=== PATIENT | male | born 1985 | race Caucasian/White ===

== ENCOUNTER 2024-12-28 05:48 | Day surgery (SDC) | payer BC, SELFPAY ==
[2024-12-28] VITALS (8 sets, daily range): BP systolic 109–132; BP diastolic 63–86; BMI 23.3
[2024-12-28] MEDS: TYLENOL 1000 MG PO (06:17)
[2024-12-28] MEDS: NORMOSOL-R/PLASMALYTE-A 1000 IV (06:22)
--- NOTE | 2024-12-28 07:10 | W.SUR.PREOP ---
Pre-Operative Surgical Note
-
I have examined this patient prior to the performance of the scheduled procedure.
The patient's condition is unchanged from the time of the current History and
Physical and the patient is able to undergo the scheduled procedure.
--- NOTE | 2024-12-28 07:10 | HP.FOC2 ---
Focused History & Physical
Chief Complaint
HPI:
Chief Complaint: Left inguinal hernia
HPI / Indication for Planned Procedure: This is a 39-year-old male presents with a symptomatic left inguinal hernia. Will plan for a laparoscopic inguinal hernia repair with mesh.
Relevant Past Medical History: Negative
Relevant Social History: Negative
Relevant Family History: Negative
Relevant Past Surgical History: Negative
Review of Systems
Review of Pertinent Systems: All Systems Negative
Medication
See Medication form for detailed medications: Yes
Medication List (including Herbals & OTC):
No Meds [No Current Medications] 12/27/24
Medications Reviewed: Yes
Allergies and Reactions
Patient has Allergies: No
Noted Allergies and Reactions:
Allergy/AdvReac Type Severity Reaction Status Date / Time
No Known Allergies Allergy Verified 12/28/24 06:13
Pertinent Physical Exam
All Other Systems: Negative
Head/Neck: Normal
Diagnosis / Assessment
This is a 39-year-old male presents with a symptomatic left inguinal hernia. Will plan for a laparoscopic inguinal hernia repair with mesh.
Plan / Procedure
This is a 39-year-old male presents with a symptomatic left inguinal hernia. Will plan for a laparoscopic inguinal hernia repair with mesh.
Anesthesia/Sedation to be done by Anesthesia Provider: Yes
--- NOTE | 2024-12-28 08:29 | W.IMMPOSTOP ---
Surgical Immed Post Op Note
-
Primary Surgeon: Anand Cruz MD
Assisting Surgeon: None
Pre-op Diagnosis: Left inguinal hernia
Post-op Diagnosis: Same
Procedure Performed: Laparoscopic left inguinal hernia repair with mesh (TEP approach)
Anesthesia Type: General
Specimen / Cultures: None
Estimated Blood Loss: 3 cc
Complications: None
Operative Findings: Small direct inguinal hernia. There was no indirect or femoral components. There was no cord lipoma. The attenuated transversalis fascia in the direct space was tacked to Owen's ligament. After achieving the critical view
of the MPO a large left Bard 3D max mid weight uncoated polypropylene mesh was tacked at coopers ligament. Care was taken during desufflation to ensure that the inferior edge of the mesh did not roll or fold.
--- NOTE | 2024-12-28 08:31 | OR.RPT ---
Operative Report
Operative Report
Patient Name: Kong Edwards
: 01/03/1995
Date of Operation: 12/28/2024
Preoperative Diagnosis: Reducible Inguinal hernia, left
Postoperative Diagnosis: Same
Procedure(s):
1. Laparoscopic Inguinal Hernia Repair, (TEP approach)
Surgeon(s):
Dr. Cruz
Mash Filter Operator(s):
ELIS Ramirez
Anesthesia: General
Estimated Blood Loss: 3 cc
Urine Output: None
Drains/Lines/Implants: Large 3D Max Bard mid weight mesh
Specimens: None
Indication for surgery: The patient has a history of groin pain and noted on exam to have a Left inguinal Hernia(s). Following review of therapeutic options they elected to undergo a minimally invasive repair.
Operative Findings: Small direct inguinal hernia. There was no indirect or femoral components. There was no cord lipoma. The attenuated transversalis fascia in the direct space was tacked to Woen's ligament. After achieving the critical view
of the MPO a large left Bard 3D max mid weight uncoated polypropylene mesh was tacked at coopers ligament. Care was taken during desufflation to ensure that the inferior edge of the mesh did not roll or fold.
Details of the operation:
After inducing general anesthesia and endotracheal intubation, the patient was prepped and draped in the supine position with both arms tucked. After infiltration with 0.25% Marcaine, a left periumbilical incision was made. Dissection was carried
down to the anterior sheath which was incised and the rectus muscle retracted laterally. An origin balloon was then inserted in through the posterior portion of the rectus into the preperitoneal space. This was insufflated under direct vision and
blunt dissection was therefore achieved in the preperitoneal space. The balloon was then removed and a 12mm Balloon trocar was placed. Two 5-mm ports were also placed in the midline below the camera port. Blunt dissection was used to dissect the
myopectineal orifice with care not to injure the epigastric vessels, gonadals or spermatic cord. Blunt dissection was used to identify the direct, indirect, and femoral spaces.
Left side:
The cord was inspected and no indirect hernia sac was identified.
There was no cord lipoma.
There was a weakness in the direct space floor. The attenuated fascia was tacked to Owen's ligament.
There was no femoral herniation.
A large 3D max mesh was then placed into position and positioned into the appropriate area to cover all 3 defects and secured to Owen's ligament with 2 absorbable tacks.
The area was then completely infiltrated with 20 cc of Marcaine without epinephrine (0.25%). The insufflation was slowly decreased and the mesh was assured to be in proper position with desufflation. The Andrew trocar site was also closed with 0
PDS suture in a [id number] fashion. The skin sites were all then closed with running subcuticular 4-0 Monocryl suture followed by dermabond. Inspection of the scrotum revealed both testes to be in position. The patient returned to the
recovery room in stable condition. Sponge and instrument counts were correct. No specimen sent to pathology
I was the attending physician and performed the procedure with assistance of the PA above. The assistance of ELIS Ramirez was required due to the complexity of the procedure. During the procedure Catrina assisted with tissue retraction,
manipulating the camera, and closure of the wound. I was present for all portions of the case, excluding skin closure.
Anand Cruz MD
[2024-12-28] MEDS: DILAUDID 0.25 MG IV (08:55)
[2024-12-28] MEDS: ROXICODONE 5 MG PO (10:00)
== END 2024-12-28 10:40 | disposition home or self-care (01) ==
LOC: SDS 05:48
PROVIDERS: ATTENDING PHYSICIAN Surgery
DX: K40.90 Unilateral inguinal hernia, without obstruction or gangrene, not specified as recurrent (principal)
CPT/HCPCS: 49650; C1781